=== PATIENT | female | born 1990 | race Caucasian/White ===

== ENCOUNTER → 2017-07-21 | Emergency (ER) | payer BC ==
[~2017-07-21] VITALS: Ht 162.6 cm; Wt 54.4 kg
[2017-07-21 18:13] VITALS: BP 116/70
--- NOTE | 2017-07-21 18:17 | Emergency Room Report ---
History of Present Illness General Chief Complaint: Seizure Source: Patient Present Illness HPI 26YOF BIBEMS after witnessed seizure Was sitting in chair, slumped over. No trauma Takes diamox daily. Took today Last seizure 4 years ago. Denies biting tongue, incontinence Was traveling to [facility] today from [facility] to check out an technology internship No additional seizures by EMS Initially post-ictal, feels better now Allergies: Coded Allergies: No Known Allergies (Unverified , 07/21/17) Patient History Past Medical History: seizures Past Surgical History: none Pertinent Family History: none Social History: Denies: smoking, alcohol use, drug use Now: No Immunizations: UTD Reviewed Nursing Documentation: PMH: Agreed, PSxH: Agreed Nursing Documentation-PMH Hx Cardiac Problems: No Hx Hypertension: No Hx Pacemaker: No Hx Asthma: No Hx Diabetes: No Hx Cancer: No Hx Gastrointestinal Problems: No Hx Dialysis: No History Of Psychiatric Problem: No Hx Neurological Problems: No Hx Cerebrovascular Accident: No Hx Seizures: Yes Review of Systems All Other Systems: negative except mentioned in HPI Physical Exam Vital Signs Date Time Temp Pulse Resp B/P (MAP) Pulse Ox O2 Delivery O2 Flow Rate FiO2 07/21/17 18:06 97.9 84 16 116/70 98 Room Air Sp02 EP Interpretation: reviewed, normal General Appearance: normal inspection, well appearing, no apparent distress, alert, GCS 15, non-toxic Head: normocephalic, atraumatic Eyes: bilateral eye PERRL, bilateral eye EOMI ENT: normal ENT inspection, hearing grossly normal, normal voice Neck: normal inspection, full range of motion, supple, no bony tend Respiratory: normal inspection, lungs clear, normal breath sounds, no respiratory distress, no retraction, no wheezing Cardiovascular #1: regular rate, rhythm, no edema Gastrointestinal: normal inspection, normal bowel sounds, non tender, soft, no guarding, no hernia Genitourinary: no CVA tenderness Musculoskeletal: normal inspection, back normal, normal range of motion, Casey' s Sign negative Neurologic: normal inspection, alert, oriented x3, responsive, supervisor wrapping room III-XII nml as tested, motor strength/tone normal, speech normal Psychiatric: normal inspection, judgement/insight normal, mood/affect normal Skin: normal inspection, normal color, no rash Lymphatic: normal inspection Medical Decision Making Diagnostic Impression: Primary Impression: Seizure disorder ER Course Observed in the ER for 2 hours No additional seizure VSS. Afebrile No levels to check for Diamox Was DCed with brother/father Has Neurologist in [place] Strongly advised to call them to discuss breakthru seizure Return to ER for additional seizures, concern Last Vital Signs Date Time Temp Pulse Resp B/P (MAP) Pulse Ox O2 Delivery O2 Flow Rate FiO2 07/21/17 18:13 84 16 Room Air 07/21/17 18:06 97.9 116/70 98 Status: improved Disposition: HOME, SELF-CARE NGUYỄN MILLER M.D. Jul 21, 2017 18:17
[2017-07-21 20:12] VITALS: BP 114/73
[2017-07-21 20:13] VITALS: BP 114/74
== END | disposition home or self-care (01) ==
LOC: EDBD 18:06 → EMR 20:20
DX: G40.909 Epilepsy, unspecified, not intractable, without status epilepticus (principal)
CPT/HCPCS: 99284